=== PATIENT | female | born 1965 | race Two or more races ===

== ENCOUNTER 2025-03-27 06:00 | Day surgery (SDC) | payer OTHER ==
[2025-03-27] MEDS ORDERED: DIPHENHYDRAMINE HCL 50 MG/ML VIAL 1ML IV ONE (10:00)
[2025-03-27] MEDS ORDERED: ONDANSETRON HCL 2 MG/ML VIAL IV ONE (10:00)
[2025-03-27] MEDS ORDERED: MIDAZOLAM HCL 2 MG/2 ML VIAL IV ONE (10:00)
[2025-03-27] MEDS ORDERED: fentaNYL CITRATE 50 MCG/ML AMPUL IV PUSH ONE (10:00)
== END 2025-03-27 11:10 | disposition home or self-care (01) ==
LOC: AMB-ENDOS 06:00
PROVIDERS: ATTEND Colon & Rectal Surgery
DX: K62.5 Hemorrhage of anus and rectum (principal); R19.4 Change in bowel habit; Z12.11 Encounter for screening for malignant neoplasm of colon; Z12.12 Encounter for screening for malignant neoplasm of rectum